=== PATIENT | female | born 1985 | race African-American/Black ===

== ENCOUNTER 2018-11-18 11:55 | Inpatient (IN) ==
[2018-11-18] MEDS ORDERED: Ketorolac Inj 30 MG/ML (IVP) Vial IV.PUSH ONE ×2 (14:26→21:26)
[2018-11-18] MEDS ORDERED: Dexamethasone Inj 20 MG/5 ML Vial IV.PUSH ONE (14:26)
[2018-11-18] MEDS ORDERED: Clindamycin 600 mg/NS Premix 600 MG/50 ML PIGGYBACK IV.SIG STA (14:27)
[2018-11-18] MEDS ORDERED: Sod Chloride 0.9% Inj 1,000 ML IV.SIG SCH (14:30)
[2018-11-18] MEDS ORDERED: Clindamycin Inj 600 MG in Sodium Chlor 0.9% Inj 100 ML IV.SIG ONE (14:45)
[2018-11-18 17:14] LABS: Baso % (Auto) 0.8 % (0.0-2.0); Eos # (Auto) 0.4 th/mm3 (0.0-0.4); Eos % (Auto) 6.5 % (0.0-4.0); Hematocrit 36.2 % (35.0-46.0); Hemoglobin 11.8 gm/dL (11.6-15.3); Lymph # (Auto) 1.8 th/mm3 (1.0-4.8); Lymph % (Auto) 28.6 % (9.0-44.0); Mean Corpuscular HGB Conc 32.7 % (32.0-36.0); Mean Corpuscular Hemoglobin 24.5 pg (27.0-34.0); Mean Corpuscular Volume 74.8 fL (80.0-100.0); Mean Platelet Volume 7.4 fL (7.0-11.0); Mono # (Auto) 0.8 th/mm3 (0.0-0.9); Mono % (Auto) 12.6 % (0.0-8.0); Neut # (Auto) 3.3 th/mm3 (1.8-7.7); Neut % (Auto) 51.5 % (16.0-70.0); Platelet Count 418 th/mm3 (150-450); Red Blood Count 4.84 mil/mm3 (4.00-5.30); Red Cell Distribution Width 20.1 % (11.6-17.2); White Blood Count 6.3 th/mm3 (4.0-11.0)
[2018-11-18 17:30] LABS: INR 0.9 Ratio; Prothrombin Time 9.6 sec (9.8-11.6)
--- NOTE | 2018-11-18 17:36 | ED ---
HPI General Chief complaint: Dental/Oral Stated complaint: Swollen face/tooth complaint Time Seen by Provider: 11/18/18 13:59 Source: patient Mode of arrival: ambulatory Limitations: no limitations History of Present Illness HPI Narrative: 33-year-old female presents to the emergency department with complaint of right lower dental pain times 1 month with worsening times the past 5 days with facial pain and swelling developing. She was supposed to have her right lower wisdom tooth taken out a month ago because it looked infected, but did not follow-up. She was seen about 11 days ago and has been taking Augmentin twice daily as prescribed for dental infection. Says she cannot open her mouth and has been "squeezing" the medication in between her gapped Teeth in the front of her mouth. Denies sore throat or difficulty swallowing. Denies fever, vomiting. Has also been taking BC powder for pain. Rates pain 6/ 10. Pain is constant. No known relieving factors. No primary care provider. Allergies to penicillin, although she is been prescribed Augmentin and has had no problems taking it. Denies significant past medical history. Says she has access to a dentist. Has no other medical complaints. No other modifying factors or associated signs and symptoms. Related Data Home Medications Medication Instructions Recorded Confirmed amoxicillin-pot clavulanate 1 tab PO Q12H 11/18/18 11/18/18 [Augmentin] Allergies Allergy/AdvReac Type Severity Reaction Status Date / Time penicillin G Allergy Severe RASH Verified 11/18/18 17:02 Review of Systems ROS: all other systems reviewed are negative PMFSH Medical History Medical History Pericardial effusion (Acute) Pericardial effusion with cardiac tamponade (Acute) Surgical History Surgical History No history of previous surgery (Acute) Family History Family History Other HTN (hypertension) Social History Social History Substance History: No History of Abuse Smoking Status: Current some day smoker Tobacco Type: Cigarettes How Often Do You Have a Drink Containing Alcohol: 2 to 3 times a week Recent Travel in [facility] within the Last 8 Weeks: No Recent Out of Country Travel within the Last 8 Weeks: No Immunization History Tetanus Immunization: <5 Years Tetanus Immunization Year if Known: 2017 Exam Narrative Exam Narrative: GENERAL: Well-nourished, well-developed black female patient, in no acute distress; afebrile, nontoxic-appearing SKIN: Warm and dry. HEAD: Atraumatic. Normocephalic. Right facial cheek with edema and tenderness to palpation; without erythema. No lymphadenopathy. EYES: Pupils equal and round. No scleral icterus. No injection or drainage. ENT: Mucosa pink and moist. No erythema or exudates. No uvular edema. No uvular , palatal, or tonsillar deviation. Airway patent. EARS: Bilateral pinnae and external canals appear within normal limits. Bilateral tympanic membranes without erythema, dullness or perforation. MOUTH: Positive trismus. Patient unable to open jaw. Mucous membranes moist, no lesions, tongue and gums appear normal. Right upper and lower outer gingiva without any fluctuance or obvious abscess noted. Unable to assess the inside of the patient's mouth secondary to her not being able to open her jaw. NECK: Trachea midline. No lymphadenopathy. CARDIOVASCULAR: Regular rate. RESPIRATORY: No accessory muscle use. GASTROINTESTINAL: Flat. MUSCULOSKELETAL: No obvious deformities. No clubbing. No cyanosis. No edema. NEUROLOGICAL: Awake and alert. Oriented 3. No obvious cranial nerve deficits. Motor grossly within normal limits. Normal speech. PSYCHIATRIC: Appropriate mood and affect; insight and judgment normal. Course Initial Documented Vital Signs Temperature 98.4 F 11/18/18 13:16 Pulse Rate 86 11/18/18 13:16 Respiratory Rate 20 11/18/18 13:16 Blood Pressure 131/84 11/18/18 13:16 Pulse Oximetry 99 11/18/18 13:16 Last Documented Vital Signs Temperature 98.1 F 11/19/18 01:00 Pulse Rate 71 11/19/18 06:00 Respiratory Rate 15 11/19/18 06:00 Blood Pressure 126/72 11/19/18 01:00 Pulse Oximetry 96 11/19/18 06:00 Medical Decision Making MDM Narrative Medical decision making narrative: 33-year-old female with right sided facial edema and swelling. Patient has trismus and is unable to open her mouth. She is afebrile and nontoxic-appearing. Denies fever or vomiting. She has been being treated with Augmentin for the past 11 days for tooth pain to her right lower wisdom tooth, per the patient, with worsening of symptoms times 5 days. Denies sore throat or difficulty swallowing. I discussed the patient with Dr. Jaeger and he agrees with my plan of care. CBC, BMP, coags, CT soft tissue neck, urine , IV fluids, Toradol, Decadron, clindamycin ordered. CBC unremarkable. Coags unremarkable. BMP unremarkable. CT soft tissue neck concludes: Focal area of bony destruction of the posterior right mandible with lucency seen around the apex of the last remaining molar on the right side. This reaction extends to the lateral aspect of the mandible eliciting some periosteal reaction and prominent inflammatory change in the right side of the face. A focal separate fluid collection is not seen. Call placed to craniofacial and for patient admission. I spoke with Dr. Sandy and he recommends for the patient to be transferred to another facility as he is not oral maxillofacial. I spoke with Dr. nugent from [facility] and he recommends for the patient to be admitted to medicine for IV antibiotics at [facility], as there is no fluid collection and no elevated white count, and at this point the patient should respond to IV antibiotics. He does recommend if there is a fluid collection that develops or the patient develops increased white cell count then OMFS would be needed at that time. Call placed to Dr. Edi Daley is going to verify acceptance of admission and will contact Mahesh Taylor PA-C. Report given to Merrick Taylor PA-C. Medical Screen Exam Complete: Yes Emergency Medical Condition: Yes Differential Diagnosis Differential Diagnosis: Dental abscess, trismus, lock jaw, dental infection Lab Data Result diagrams: 11/19/18 04:05 11/19/18 04:05 POC Results POC Urine Results Negative Lab Results 11/18/18 11/18/18 11/18/18 Range/Units 16:50 16:50 16:50 WBC 6.3 (4.0-11.0) th/mm3 RBC 4.84 (4.00-5.30) mil/mm3 Hgb 11.8 (11.6-15.3) gm/dL Hct 36.2 (35.0-46.0) % MCV 74.8 L (80.0-100.0) fL MCH 24.5 L (27.0-34.0) pg MCHC 32.7 (32.0-36.0) % RDW 20.1 H (11.6-17.2) % Plt Count 418 (150-450) th/mm3 MPV 7.4 (7.0-11.0) fL Neut % (Auto) 51.5 (16.0-70.0) % Lymph % (Auto) 28.6 (9.0-44.0) % Nicol[place] % (Auto) 12.6 H (0.0-8.0) % Eos % (Auto) 6.5 H (0.0-4.0) % Baso % (Auto) 0.8 (0.0-2.0) % Neut # (Auto) 3.3 (1.8-7.7) th/mm3 Lymph # (Auto) 1.8 (1.0-4.8) th/mm3 Nicollet # (Auto) 0.8 (0.0-0.9) th/mm3 Eos # (Auto) 0.4 (0.0-0.4) th/mm3 Baso # (Auto) 0.0 (0.0-0.2) th/mm3 WBC Differential . Differential Comment Auto diff final PT 9.6 L (9.8-11.6) sec INR 0.9 Ratio APTT 30.0 (23.4-31.7) sec Sodium 137 (136-145) meq/L Potassium 4.0 (3.5-5.1) meq/L Chloride 101 (98-107) meq/L Carbon Dioxide 25.7 (21.0-32.0) meq/L Anion Gap 10 (5-15) meq/L BUN 4 L (7-18) mg/dL Creatinine 0.65 (0.50-1.00) mg/dL Estimated GFR Greater than 89 (>89) mL/min Random Glucose 76 (74-106) mg/dL Calcium 8.8 (8.5-10.1) mg/dL 11/19/18 11/19/18 Range/Units 04:05 04:05 WBC 5.7 (4.0-11.0) th/mm3 RBC 4.71 (4.00-5.30) mil/mm3 Hgb 11.3 L (11.6-15.3) gm/dL Hct 34.5 L (35.0-46.0) % MCV 73.3 L (80.0-100.0) fL MCH 24.1 L (27.0-34.0) pg MCHC 32.8 (32.0-36.0) % RDW 19.6 H (11.6-17.2) % Plt Count 433 (150-450) th/mm3 MPV 7.8 (7.0-11.0) fL Neut % (Auto) 83.8 H (16.0-70.0) % Lymph % (Auto) 13.8 (9.0-44.0) % Nicollet % (Auto) 2.2 (0.0-8.0) % Eos % (Auto) 0.0 (0.0-4.0) % Baso % (Auto) 0.2 (0.0-2.0) % Neut # (Auto) 4.8 (1.8-7.7) th/mm3 Lymph # (Auto) 0.8 L (1.0-4.8) th/mm3 Nicollet # (Auto) 0.1 (0.0-0.9) th/mm3 Eos # (Auto) 0.0 (0.0-0.4) th/mm3 Baso # (Auto) 0.0 (0.0-0.2) th/mm3 WBC Differential . Differential Comment Auto diff final PT (9.8-11.6) sec INR Ratio APTT (23.4-31.7) sec Sodium 139 (136-145) meq/L Potassium 3.7 (3.5-5.1) meq/L Chloride 104 (98-107) meq/L Carbon Dioxide 24.9 (21.0-32.0) meq/L Anion Gap 10 (5-15) meq/L BUN 5 L (7-18) mg/dL Creatinine 0.57 (0.50-1.00) mg/dL Estimated GFR Greater than 89 (>89) mL/min Random Glucose 117 H (74-106) mg/dL Calcium 8.9 (8.5-10.1) mg/dL Imaging Data Radiologist's impression: Soft Tissue Neck CT 11/18/18 14:25 CONCLUSION: Focal area of bony destruction of the posterior right mandible with lucency seen around the apex of the last remaining molar on the right side. This reaction extends to the lateral aspect of the mandible eliciting some periosteal reaction and prominent inflammatory change in the right side of the face. A focal separate fluid collection is not seen. Discharge Plan Discharge Disposition Patient Disposition: ED Admit(ED Internal Use Only) Discharge Condition Condition: Stable Discharge Order Discharge Orders: ED Use Only Admit Order (Routine); Ordered 11/18/18 Ordered By: Mahesh Taylor Discharge Details Diagnosis: Infection of mandible Physicians Team ED Provider: Francis Jaeger ED Midlevel Provider: Mahesh Taylor Primary Care Provider: Primary Care LazarusiJovanna Attending Provider: Lanny Rod Discharge Interventions Interventions: Vital Signs Last Done: 11/18/18 17:06 Status ED Status: Admitted Observation Patient
[2018-11-18 17:45] LABS: Anion Gap 10 meq/L (5-15); Blood Urea Nitrogen 4 mg/dL (7-18); Calcium 8.8 mg/dL (8.5-10.1); Carbon Dioxide 25.7 meq/L (21.0-32.0); Chloride 101 meq/L (98-107); Glomerular Filtration Rate Greater Than 89 mL/min (>89); Glucose,Random 76 mg/dL (74-106); Sodium 137 meq/L (136-145)
--- NOTE | 2018-11-18 19:24 | CT ---
EXAM DATE: 11/18/2018 6:31 PM EST AGE/SEX: 33 years / Female INDICATIONS: Abscess. Left facial pain and swelling for 1 week. Dental infection for 1 month. CLINICAL DATA: This is the patient's initial encounter. Patient reports that signs and symptoms have been present for 1 month and indicates a pain score of 6/10. MEDICAL/SURGICAL HISTORY: . Pericardial effusion. None. RADIATION DOSE: 17.86 CTDI (mGy) COMPARISON: No prior exams available for comparison. TECHNIQUE: Helical acquisition was performed using a multirow detector CT scanner during the adminis tration of 75 ml Omnipaque 350 (iohexol) nonionic water-soluble contrast as a single exam dose. Usi ng automated exposure control and adjustment of the mA and/or kV according to patient size, radiation dose was kept as low as reasonably achievable to obtain optimal diagnostic quality images. DICOM fo rmat image data is available electronically for review and comparison. FINDINGS: There is subcutaneous edema seen in the right side of the face. This extends to the masseter muscle r egion and the lateral aspect of the mandible. There appears to be a defect at the posterior right lat eral aspect of the mandible adjacent to the apex of the last remaining molar. There appears to be chavo e periosteal reaction in the mandible seen posterior to this defect. An abscess in this region needs to be suspected. The suspected abscess extends to the medial margin of the masseter muscle. There are enlarged lymph nodes in the right submandibular gland measuring up to 1.5 cm. There are mildly enlar ged lymph nodes seen in the anterior and posterior triangles on the right in the upper neck. Nasopharynx: The nasopharyngeal airway has a normal configuration. No mucosal thickening or mass is seen. Oropharynx: The intrinsic muscles of the tongue are symmetric. The tonsillar pillars are intact. T he prevertebral soft tissues are not thickened. Larynx: The supraglottic, glottic, and infraglottic structures are intact. Parapharyngeal: The parapharyngeal space is intact. Salivary Glands: The parotid and submandibular glands are intact. Thyroid: Homogeneous enhancement without evidence of nodule. CONCLUSION: Focal area of bony destruction of the posterior right mandible with lucency seen around the apex of t he last remaining molar on the right side. This reaction extends to the lateral aspect of the mandibl e eliciting some periosteal reaction and prominent inflammatory change in the right side of the face. A focal separate fluid collection is not seen. Electronically signed by: Brown Curtis MD Board Certified Radiologist 11/18/2018 7:23 PM EST
[2018-11-18] MEDS ORDERED: Bisacodyl 10 MG Supp RECTAL PRN (23:52)
[2018-11-18] MEDS ORDERED: Morphine Sulfate Inj 2 MG/ML Vial IV.PUSH PRN (23:52)
--- NOTE | 2018-11-19 00:02 | P.HPIM ---
History of Present Illness Primary Care Physician: No Primary Care Physician 33-year-old female with no significant past medical history presents to the emergency department for the evaluation of right sided to and jaw pain/ swelling. The patient reports that she had a tooth extraction approximately a year and a half ago and her dentist recommended an oral surgeon to remove her wisdom tooth. The patient reports she did not follow-up on this because the tooth was not bothering her until about 2 months ago when she started to have significant pain in that tooth. She had a physician at work prescribed antibiotics for her and she completed a 2-week course of Augmentin that was started on 11/06/18 without improvement of her symptoms. She denies any associated fever/chills. She reports that approximately 4-5 days ago the swelling became significant and the pain worsened. She reports that at this time she cannot open her mouth. No chest pain or shortness of breath. No abdominal pain. No nausea/vomiting/diarrhea. No focal neurologic deficits. Inpatient Certification Inpatient Certification: I certify that the inpatient services were ordered in accordance with Medicare regulations governing the order. This includes certification that hospital inpatient services are reasonable and necessary and in the case of services not specified as inpatient-only under 42 CFR 419.22(n), that they are appropriately provided as inpatient services in accordance to with the 2-midnight benchmark under 43 CFR 412.3(e) Review of Systems Review of Systems: all other systems reviewed are negative [facility] Medical History Medical History Pericardial effusion (Acute) Pericardial effusion with cardiac tamponade (Acute) Surgical History Surgical History No history of previous surgery (Acute) Family History Family History Other HTN (hypertension) Social History Social History Substance History: No History of Abuse Smoking Status: Current some day smoker Tobacco Type: Cigarettes How Often Do You Have a Drink Containing Alcohol: 2 to 3 times a week Recent Travel in [facility] within the Last 8 Weeks: No Recent Out of Country Travel within the Last 8 Weeks: No Immunization History Tetanus Immunization: <5 Years Tetanus Immunization Year if Known: 2016 Medications and Allergies Allergies Allergy/AdvReac Type Severity Reaction Status Date / Time penicillin G Allergy Severe RASH Verified 11/18/18 17:02 Home Medications Medication Instructions Recorded Confirmed Type amoxicillin-pot clavulanate 1 tab PO Q12H 11/18/18 11/18/18 History [Augmentin] Active Medications: Active Medications Acetaminophen (Tylenol) 650 mg PO Q4H PRN PRN Reason: Temp > 100.4 Bisacodyl (Dulcolax Supp) 10 mg RECTAL DAILY PRN PRN Reason: SEVERE CONSITIPATION Physical Exam Vital signs: Vital Signs 11/18/18 13:16 11/18/18 15:30 11/18/18 17:06 Temperature 98.4 F Pulse Rate 86 75 78 Respiratory Rate 18 Blood Pressure 131/84 115/76 125/73 Pulse Oximetry 99 98 98 Intake & Output 11/18/18 11/18/18 11/19/18 06:59 18:59 06:59 Intake Total 1104 / 1104 Balance 1104 / 1104 Weight 83.461 kg Intake: IV 1104 / 1104 Cleocin Inj 600 MG In NS Inj 104 / 104 100 ML @ 100 mls/hr IV.SIG ONCE ONE Rx#:[id number] NS Inj 1,000 ML @ 1000 mls/hr 1000 / 1000 IV.SIG BOLUS MANOHAR Rx#:[id number] Narrative: Gen.: No acute distress Head: Normocephalic. Atraumatic. EENT: Pupils equal round and reactive to light. Nose without drainage. Airway intact. Right sided jaw swelling and tenderness. Unable to examine the pharynx or teeth as patient is unable to open her mouth. Cardiovascular: Regular rate and rhythm. No murmurs, rubs or gallops. Respiratory: Lungs clear to auscultation bilaterally. No wheezes or rhonchi. Abdomen: Soft, nontender, nondistended. No peritoneal signs. Musculoskeletal: No gross deformities. No edema. Skin: No obvious rashes or erythema. Neuro: Sensory and motor grossly intact. Cranial nerves II through XII grossly intact. Results Labs CBC & Chem 7: 11/18/18 16:50 11/18/18 16:50 Imaging Impressions Soft Tissue Neck CT 11/18/18 14:25 CONCLUSION: Focal area of bony destruction of the posterior right mandible with lucency seen around the apex of the last remaining molar on the right side. This reaction extends to the lateral aspect of the mandible eliciting some periosteal reaction and prominent inflammatory change in the right side of the face. A focal separate fluid collection is not seen. Caprini VTE Risk Assessment Caprini VTE Risk Assessment: No/Low Risk (score <= 1) Caprini Risk Assessment Model: Point Value = 1 Point Value = 2 Point Value = 3 Point Value = 5 Age 41-60 Minor surgery BMI > 25 kg/m2 Swollen legs Varicose veins or History of unexplained or recurrent spontaneous Oral contraceptives or hormone replacement Sepsis (< 1 month) Serious lung disease, including pneumonia (< 1 month) Abnormal pulmonary function Acute myocardial infarction Congestive heart failure (< 1 month) History of inflammatory bowel disease Medical patient at bed rest Age 61-74 Arthroscopic surgery Major open surgery (> 45 min) Laparoscopic surgery (> 45 min) Malignancy Confined to bed (> 72 hours) Immobilizing plaster cast Central venous access Age >= 75 History of VTE Family history of VTE Factor V Leiden Prothrombin [id number] Lupus anticoagulant Anticardiolipin antibodies Elevated serum homocysteine Heparin-induced thrombocytopenia Other congenital or acquired thrombophilia Stroke (< 1 month) Elective arthroplasty Hip, pelvis, or leg fracture Acute spinal cord injury (< 1 month) Prophylaxis Regimen: Total Risk Factor Score Risk Level Prophylaxis Regimen 0-1 Low Early ambulation 2 Moderate Order ONE of the following: *Sequential Compression Device (SCD) *Heparin 5000 units SQ BID 3-4 Higher Order ONE of the following medications: *Heparin 5000 units SQ TID *Enoxaparin/Lovenox 40 mg SQ daily (WT < 150 kg, CrCl > 30 mL/min) *Enoxaparin/Lovenox 30 mg SQ daily (WT < 150 kg, CrCl > 10-29 mL/min) *Enoxaparin/Lovenox 30 mg SQ BID (WT < 150 kg, CrCl > 30 mL/min) AND/OR *Sequential Compression Device (SCD) 5 or more Highest Order ONE of the following medications: *Heparin 5000 units SQ TID (Preferred with Epidurals) *Enoxaparin/Lovenox 40 mg SQ daily (WT < 150 kg, CrCl > 30 mL/min) *Enoxaparin/Lovenox 30 mg SQ daily (WT < 150 kg, CrCl > 10-29 mL/min) *Enoxaparin/Lovenox 30 mg SQ BID (WT < 150 kg, CrCl > 30 mL/min) AND *Sequential Compression Device (SCD) Assessment and Plan Plan Assessment/plan: 1. Dental infection CT shows focal area of bony destruction of the posterior right mandible with lucency seen around the apex of the last remaining molar on the right side Emergency department provider attempted to transfer the patient to [facility] as we have no OMFS on-call. ED provider spoke with Dr. nugent who recommended that the patient be admitted at [facility] for IV antibiotics. He states there is no fluid collection or intervention required at this time. Recommends continuing IV clindamycin, Decadron. If drainable fluid collection forms or if patient develops leukocytosis he suggests transferring the patient for further intervention. IV clindamycin Decadron Monitor FEN Full liquid diet Electrolytes: Monitor and replete as needed
[2018-11-19] MEDS: Clindamycin 900 mg/NS Premix 900 MG/50 ML PIGGYBACK IV.SIG SCH ×4 (01:30→23:59)
[2018-11-19 05:29] LABS: Baso % (Auto) 0.2 % (0.0-2.0); Hematocrit 34.5 % (35.0-46.0); Hemoglobin 11.3 gm/dL (11.6-15.3); Lymph # (Auto) 0.8 th/mm3 (1.0-4.8); Lymph % (Auto) 13.8 % (9.0-44.0); Mean Corpuscular HGB Conc 32.8 % (32.0-36.0); Mean Corpuscular Hemoglobin 24.1 pg (27.0-34.0); Mean Corpuscular Volume 73.3 fL (80.0-100.0); Mean Platelet Volume 7.8 fL (7.0-11.0); Mono # (Auto) 0.1 th/mm3 (0.0-0.9); Mono % (Auto) 2.2 % (0.0-8.0); Neut # (Auto) 4.8 th/mm3 (1.8-7.7); Neut % (Auto) 83.8 % (16.0-70.0); Platelet Count 433 th/mm3 (150-450); Red Blood Count 4.71 mil/mm3 (4.00-5.30); Red Cell Distribution Width 19.6 % (11.6-17.2); White Blood Count 5.7 th/mm3 (4.0-11.0)
[2018-11-19 05:48] LABS: Anion Gap 10 meq/L (5-15); Blood Urea Nitrogen 5 mg/dL (7-18); Calcium 8.9 mg/dL (8.5-10.1); Carbon Dioxide 24.9 meq/L (21.0-32.0); Chloride 104 meq/L (98-107); Glomerular Filtration Rate Greater Than 89 mL/min (>89); Glucose,Random 117 mg/dL (74-106); Potassium 3.7 meq/L (3.5-5.1); Sodium 139 meq/L (136-145)
[2018-11-19] MEDS: Senna/Docusate Sodium 8.6/50 MG Tablet PO SCH ×2 (09:20→21:52)
[2018-11-19] MEDS: Acetaminophen 325 MG Tablet PO PRN ×2 (10:31→23:58)
--- NOTE | 2018-11-19 12:57 | P.PNIM ---
Physical Exam Vital signs: Vital Signs 11/18/18 13:16 11/18/18 15:30 11/18/18 17:06 Temperature 98.4 F Pulse Rate 86 75 78 Respiratory Rate 20 18 18 Blood Pressure 131/84 115/76 125/73 Pulse Oximetry 99 98 98 11/18/18 20:00 11/19/18 01:00 11/19/18 06:00 Temperature 98.9 F 98.1 F Pulse Rate 71 79 71 Respiratory Rate 23 19 15 Blood Pressure 146/73 H 126/72 Pulse Oximetry 97 98 96 11/19/18 10:20 11/19/18 10:30 Temperature 98.1 F 97.7 F Pulse Rate 72 94 H Respiratory Rate 16 20 Blood Pressure 120/70 131/86 Pulse Oximetry 100 Intake & Output 11/18/18 11/19/18 11/19/18 18:59 06:59 18:59 Intake Total 1104 / 1104 50 / 50 50 / 50 Balance 1104 / 1104 50 / 50 50 / 50 Weight 83.461 kg 83.461 kg Intake: IV 1104 / 1104 50 / 50 50 / 50 Cleocin 900 mg/NS Premix 900 mg 50 / 50 50 / 50 In 50 ml @ 100 mls/hr IV.SIG Q8H MANOHAR Rx#:[id number] Cleocin Inj 600 MG In NS Inj 104 / 104 100 ML @ 100 mls/hr IV.SIG ONCE ONE Rx#:[id number] NS Inj 1,000 ML @ 1000 mls/hr 1000 / 1000 IV.SIG BOLUS MANOHAR Rx#:[id number] Other: Weight On Admission 83.461 kg Narrative: Gen.: Well-nourished well-developed pleasant female in no acute distress HEENT: Patient was able to open her mouth more however not enough for me to visualize the back of the oropharynx or right bottom molar teeth Cardiovascular: Regular rate and rhythm. No murmurs, rubs or gallops. Respiratory: Lungs clear to auscultation bilaterally. No wheezes or rhonchi. Abdomen: Soft, nontender, nondistended. Neuroalert and oriented x4 moves all 4 extremities Results Labs CBC & Chem 7: 11/19/18 04:05 11/19/18 04:05 Imaging Imaging: Impressions Soft Tissue Neck CT 11/18/18 14:25 CONCLUSION: Focal area of bony destruction of the posterior right mandible with lucency seen around the apex of the last remaining molar on the right side. This reaction extends to the lateral aspect of the mandible eliciting some periosteal reaction and prominent inflammatory change in the right side of the face. A focal separate fluid collection is not seen. Assessment and Plan (1) Dental infection: Code(s): K04.7 - Periapical abscess without sinus Status: Acute Plan 33-year-old white female presents with right-sided jaw swelling and pain to the point she has difficult bleeding opening her mouth with failed outpatient treatment with Augmentin taken from 11/06. Right mandible inflammation due to dental infection with failed outpatient treatment-responding to steroids and IV clindamycin overnight. Patient was able to open her mouth with less swelling and tolerating full liquids, will advance to soft diet as tolerated. No leukocytosis seen. She will make an appointment with outpatient dentist for wisdom tooth extraction when discharge from the hospital. Microcytic anemiacheck iron panel and follow-up as an outpatient. DVT prophylaxis -no mechanical or pharmaceutical VTE prophalaxis administered due to patient's low risk assessment of VTE. Encouraged ambulation. Progress Note: Quality VTE Deep Vein Thrombosis/Pulmonary Embolism Present on Admission: No
[2018-11-20] MEDS: Acetaminophen 325 MG Tablet PO PRN (05:16)
[2018-11-20 06:02] VITALS: RESP 16
[2018-11-20] MEDS: Clindamycin 900 mg/NS Premix 900 MG/50 ML PIGGYBACK IV.SIG SCH (08:03)
[2018-11-20] MEDS: Senna/Docusate Sodium 8.6/50 MG Tablet PO SCH (08:03)
[2018-11-20] MEDS ORDERED: Naloxone Inj 0.4 MG/ML Vial IV.PUSH PRN (08:43)
--- NOTE | 2018-11-20 09:20 | P.PNIM ---
Subjective Interval history: Patient reports jaw and mouth swelling much better. Is able to move and open her mouth completely now, no fevers or chills. Tolerating a soft diet. Will be contacting her dentist to set up appointment for tooth extraction. Physical Exam Vital signs: Vital Signs 11/19/18 10:20 11/19/18 10:30 11/19/18 16:45 Temperature 98.1 F 97.7 F 98.1 F Pulse Rate 72 94 H 68 Respiratory Rate 16 20 16 Blood Pressure 120/70 131/86 118/67 Pulse Oximetry 100 98 11/19/18 21:45 11/19/18 23:50 11/20/18 05:05 Temperature 98.1 F 98.3 F 97.7 F Pulse Rate 80 81 68 Respiratory Rate 16 18 16 Blood Pressure 139/89 117/77 121/83 Pulse Oximetry 99 100 98 Intake & Output 11/19/18 11/20/18 11/20/18 18:59 06:59 18:59 Intake Total 1060 / 1060 530 / 530 Balance 1060 / 1060 530 / 530 Weight 83.461 kg Intake: IV 100 / 100 50 / 50 Cleocin 900 mg/NS Premix 900 mg 100 / 100 50 / 50 In 50 ml @ 100 mls/hr IV.SIG Q8H MANOHAR Rx#:[id number] Oral 960 / 960 480 / 480 Other: # Voids 5 4 # Bowel Movements 2 Weight On Admission 83.461 kg Narrative: Gen.: Well-nourished well-developed pleasant female in no acute distress HEENT: Patient was able to open her mouth even more today and her oropharynx was not erythematous, right lower molar tenderness on palpation with no overt abscess or swelling seen Cardiovascular: Regular rate and rhythm. No murmurs, rubs or gallops. Respiratory: Lungs clear to auscultation bilaterally. No wheezes or rhonchi. Abdomen: Soft, nontender, nondistended. Neuroalert and oriented x4 moves all 4 extremities Results Labs CBC & Chem 7: 11/19/18 04:05 11/19/18 04:05 Assessment and Plan (1) Dental infection: Code(s): K04.7 - Periapical abscess without sinus Status: Acute Plan 33-year-old white female presents with right-sided jaw swelling and pain to the point she has difficult bleeding opening her mouth with failed outpatient treatment with Augmentin taken from 11/06. Right mandible inflammation due to dental infection with failed outpatient treatment-clinically improved on steroids and IV clindamycin Patient was able to open her mouth and tolerated soft diet No leukocytosis seen. She will make an appointment with outpatient dentist for wisdom tooth extraction when discharge from the hospital. Microcytic anemiacheck iron panel and follow-up as an outpatient.; Iron deficiency, iron supplements DVT prophylaxis -no mechanical or pharmaceutical VTE prophalaxis administered due to patient's low risk assessment of VTE. Encouraged ambulation. Patient made an unexpected recovery quicker than anticipated hospital course. Discharge patient to home Condition on discharge: Improved Soft regular Diet as tolerated Ad Yesenia activity Rx written: Cleocin 300 mg p.o. 3 times daily for 7 days Prednisone taper [place] as needed for pain Iron supplements Follow-up with primary care physician Progress Note: Quality VTE Deep Vein Thrombosis/Pulmonary Embolism Present on Admission: No
[2018-11-20 10:56] VITALS: BP 129/85; PULSE 72; TEMP 98.5; O2SAT 100
== END 2018-11-20 11:34 | disposition home or self-care (01) | DRG 159 ==
LOC: NEPA 11:55 → NEDA 22:45 → INTOOBSV 22:45 → NEDA 11-19 06:47 → NEDH 11-19 07:40 → H6YA 11-19 10:14
PROVIDERS: ADMIT Family Medicine; ATTEND Family Medicine
CPT/HCPCS: 70491; 80048; 82728; 83540; 83550; 84703; 85025; 85610; 85730; 90761; 90765; 90775; 90776; 96361; 96365; 96375; 96376; 99285; J1100; J1885; J7030; Q9967